=== PATIENT | female | born 1985 | race Caucasian/White ===

== ENCOUNTER 2022-01-27 05:03 | Inpatient (IN) | payer MEDICAID ==
[~2022-01-27] VITALS: Ht 167.6 cm; Wt 109.3 kg
[2022-01-27] MEDS ORDERED: CALDOLOR 800MG+NS 250ML 250 ML IV PRN (05:30)
[2022-01-27] MEDS ORDERED: CEFAZOLIN SODIUM 1 GM VIAL IVP PRN (05:30)
[2022-01-27] MEDS ORDERED: LACTATED RINGERS 1000ML 1,000 ML IV SCH (05:30)
[2022-01-27 05:47] LABS: HEMATOCRIT 33.7 % (36-48); MEAN CORPUSCULAR HEMOGLOBIN 28.4 pg (27.0-33.0); MEAN CORPUSCULAR HGB CONC 32.6 g/dL (32.0-36.0); MEAN CORPUSCULAR VOLUME 87.1 fL (79-99); RED BLOOD CELL COUNT(AUTO) 3.87 MIL/uL (4.00-5.50); RED CELL DISTRIBUTION WIDTH 14.9 % (11.0-15.5); WHITE BLOOD COUNT (AUTO) 9.6 K/uL (4.8-10.8)
[2022-01-27 05:55] LABS: AMPHET/METH SCREEN,URINE NEGATIVE (NEGATIVE); BARBITURATE SCREEN, URINE NEGATIVE (NEGATIVE); BENZODIAZEPINES SCREEN,URINE NEGATIVE (NEGATIVE); CANNABINOID SCREEN,URINE NEGATIVE (NEGATIVE); COCAINE SCREEN,URINE NEGATIVE (NEGATIVE); OPIATE SCREEN,URINE NEGATIVE (NEGATIVE); PHENCYCLIDINE SCREEN,URINE NEGATIVE (NEGATIVE)
[2022-01-27 06:11] VITALS: BP 134/86
[2022-01-27] MEDS ORDERED: MISOPROSTOL 200 MCG TABLET ONE (06:16)
[2022-01-27] MEDS ORDERED: FENTANYL CITRATE PF 50 MCG/1 ML 2ML VIAL ONE (06:30)
[2022-01-27] MEDS ORDERED: MORPHINE PF 100MG/10ML AMP IV ONE (06:30)
[2022-01-27] MEDS ORDERED: CEFAZOLIN SODIUM 3 GM VIAL IV ONE (06:35)
[2022-01-27] MEDS ORDERED: EPHEDRINE SULFATE 50 MG/ML AMPULE ONE (06:41)
[2022-01-27] MEDS ORDERED: ONDANSETRON 4MG INJ ONE (06:59)
[2022-01-27 09:40] VITALS: BP 125/70
[2022-01-27] MEDS ORDERED: PREN-154 PO (10:01)
[2022-01-27] MEDS ORDERED: EPHEDRINE SULFATE 50 MG/ML AMPULE IVP PRN (11:00)
[2022-01-27] MEDS ORDERED: ONDANSETRON 4MG INJ IVP PRN (11:00)
[2022-01-27] MEDS ORDERED: NALOXONE HCL 0.4 MG/1 ML ML IVP PRN (11:00)
[2022-01-27] MEDS ORDERED: DiphenhydrAMINE HCL 50 MG/ML VIAL IVP PRN (11:00)
[2022-01-27] MEDS ORDERED: LORATADINE 10 MG TABLET PO PRN (11:00)
[2022-01-27 11:25] VITALS: BP 135/79
[2022-01-27] MEDS ORDERED: 0.9%NACL 10ML VIAL IVP PRN (11:30)
[2022-01-27] MEDS ORDERED: MEPERIDINE-PF 75 MG/ML SYG IM PRN (11:30)
[2022-01-27] MEDS ORDERED: OXYTOCIN-LR 20 UNITS/1000 ML 1,000 ML IV PRN (11:30)
[2022-01-27] MEDS ORDERED: PROMETHAZINE HCL 25 MG/ML 1ML AMPULE IM PRN (11:30)
[2022-01-27] MEDS: CALDOLOR 800MG+NS 250ML 250 ML IV SCH ×2 (15:53→23:32)
[2022-01-27] MEDS: DEXTROSE 5 %-0.45 % NACL 1,000 ML IV PRN ×2 (15:54→23:32)
[2022-01-27 16:20] VITALS: BP 138/67
[2022-01-27 19:49] VITALS: BP 123/73
[2022-01-27 23:19] VITALS: BP 123/79
[2022-01-28 03:39] VITALS: BP 115/68
[2022-01-28 06:30] LABS: HEMATOCRIT 28.8 % (36-48); MEAN CORPUSCULAR HEMOGLOBIN 27.8 pg (27.0-33.0); MEAN CORPUSCULAR HGB CONC 31.3 g/dL (32.0-36.0); MEAN CORPUSCULAR VOLUME 88.9 fL (79-99); RED BLOOD CELL COUNT(AUTO) 3.24 MIL/uL (4.00-5.50); RED CELL DISTRIBUTION WIDTH 15.3 % (11.0-15.5); WHITE BLOOD COUNT (AUTO) 8.1 K/uL (4.8-10.8)
[2022-01-28] MEDS: ACETAMINOPHEN WITH CODEINE 1 TAB TAB PO PRN ×2 (06:48→18:45)
[2022-01-28] MEDS ORDERED: ACETAMINOPHEN WITH CODEINE 1 TAB TAB PO PRN (07:00)
[2022-01-28] MEDS ORDERED: ACETAMINOPHEN 500 MG TABLET PO PRN (07:00)
[2022-01-28] MEDS ORDERED: HYDROCODONE/ACETAMINOPHEN 5/325 MG TAB PO PRN (07:00)
[2022-01-28] MEDS ORDERED: BISACODYL 10 MG SUPP.RECT RC PRN (07:00)
[2022-01-28] MEDS ORDERED: LANOLIN 30GM OINTMENT TP PRN (07:00)
[2022-01-28 07:30] VITALS: BP 127/80
[2022-01-28] MEDS: SIMETHICONE 80 MG TAB.CHEW PO PRN ×2 (09:49→21:25)
[2022-01-28] MEDS: DOCUSATE SODIUM 100 MG CAP PO SCH ×2 (09:49→21:25)
[2022-01-28] MEDS: IBUPROFEN 800 MG TAB PO SCH ×2 (09:50→15:53)
[2022-01-28 11:21] VITALS: BP 136/95
[2022-01-28 16:00] VITALS: BP 130/91
[2022-01-28] MEDS ORDERED: HYDRALAZINE 20MG/ML VIAL IV PRN (17:30)
[2022-01-28 19:26] VITALS: BP 143/89
[2022-01-28 23:08] VITALS: BP 137/81
[2022-01-29] MEDS: IBUPROFEN 800 MG TAB PO SCH ×2 (00:20→08:15)
[2022-01-29 04:02] VITALS: BP 116/60
[2022-01-29 07:40] VITALS: BP 131/77
[2022-01-29] MEDS: SIMETHICONE 80 MG TAB.CHEW PO PRN (08:14)
[2022-01-29] MEDS: DOCUSATE SODIUM 100 MG CAP PO SCH (08:14)
== END 2022-01-29 15:30 | disposition home or self-care (01) | DRG 540 ==
LOC: EDH 05:03 → OBSVTOIN 05:04 → LDH 05:04 → WSH 09:35
PROVIDERS: ADMIT Obstetrics & Gynecology; ATTEND Obstetrics & Gynecology
PROC: 10D00Z1 Extraction of Products of Conception, Low, Open Approach (ICD-10-PCS; principal; 2022-01-27 06:30)
DX: O36.63X0 Maternal care for excessive fetal growth, third trimester, not applicable or unspecified (principal); O24.429 Gestational diabetes mellitus in childbirth, unspecified control; Z37.0 Single live birth; Z3A.39 39 weeks gestation of pregnancy; O36.8130 Decreased fetal movements, third trimester, not applicable or unspecified; Z91.19 Patient's noncompliance with other medical treatment and regimen
CPT/HCPCS: 36415; 59510; 80305; 85027; 86592; 86850; 86900; 86901; 87340; A4344; G0378; J0690; J1741; J2274; J2405; J3010; J3490; J7120